=== PATIENT | male | born 1960 | race Caucasian/White ===

== ENCOUNTER → 2023-06-28 16:29 | Outpatient (REF) | payer OTHER, SELFPAY | LOC: RAD 16:29 | PROVIDERS: ATTENDING PHYSICIAN Family Medicine | DX: N50.89 Other specified disorders of the male genital organs (principal) | CPT/HCPCS: 76870; 93976 ==

== ENCOUNTER → 2024-01-12 16:57 | Outpatient (REF) | payer OTHER, SELFPAY | LOC: RAD 16:57 | PROVIDERS: ATTENDING PHYSICIAN Nurse Practitioner Family; FAMILY PHYSICIAN Family Medicine | DX: M25.649 Stiffness of unspecified hand, not elsewhere classified (principal) | CPT/HCPCS: 73120; 73140 ==